=== PATIENT | female | born 1945 | race Caucasian/White ===

== ENCOUNTER 2019-10-31 11:38 | Observation (INO) | payer MEDICARE ==
[2019-10-28 12:21] LABS: ALBUMIN 3.9 G/DL (3.4-5.0); ANION GAP 6 (8-16); BLOOD UREA NITROGEN 15 MG/DL (7-18); BUN/CREATININE RATIO 18.3 (6.6-38.0); CALCIUM 9.3 MG/DL (8.5-10.1); CHLORIDE 98 MMOL/L (99-107); CREATININE 0.82 MG/DL (0.40-0.90); GLUCOSE 200 MG/DL (70-104); POTASSIUM 3.9 MMOL/L (3.5-5.1); SODIUM 136 MMOL/L (135-145); TOTAL CARBON DIOXIDE 31.6 MMOL/L (24-32); eGFR 68 ML/MIN
[2019-10-28 12:25] LABS: PARTIAL THROMBOPLASTIN TIME 25 SECONDS (22-32)
[2019-10-28 12:28] LABS: BASOPHILS % (AUTO) 0.7 % (0-1); EOSINOPHILS # (AUTO) 0.3 X10'3 (0-0.9); EOSINOPHILS % (AUTO) 5.1 % (0-6); HEMATOCRIT 40.2 % (35.0-45.0); HEMOGLOBIN 13.9 g/dl (12.0-16.0); LYMPHOCYTES # (AUTO) 1.6 X10'3 (1.1-4.8); LYMPHOCYTES % (AUTO) 24.6 % (21-51); MEAN CORPUSCULAR HEMOGLOBIN 32.8 PG (27.0-31.0); MEAN CORPUSCULAR HGB CONC 34.6 g/dL (33.0-36.5); MEAN CORPUSCULAR VOLUME 94.9 FL (78-98); MEAN PLATELET VOLUME 10.5 FL (7.4-10.4); MONOCYTES # (AUTO) 0.7 X10'3 (0-0.9); MONOCYTES % (AUTO) 10.8 % (2-12); NEUTROPHILS # (AUTO) 3.9 X10'3 (1.8-7.7); NEUTROPHILS % (AUTO) 58.8 % (42-75); PLATELET COUNT 233 X10'3 (140-440); RED BLOOD COUNT 4.23 X10'6 (4.20-5.60); RED CELL DISTRIBUTION WIDTH 13.1 % (11.5-14.5); WHITE BLOOD COUNT 6.6 X10'3 (4.5-11.0)
[~2019-10-31] VITALS: Ht 160 cm; Wt 71.3 kg
[2019-10-31] VITALS (13 sets, daily range): BP systolic 121–187; BP diastolic 57–93
[2019-10-31] MEDS ORDERED: LORazepam 0.5 MG tablet PO PRN (11:55)
[2019-10-31] MEDS: normal saline 1,000 ML IV SCH ×2 (11:55→21:55)
[2019-10-31] MEDS ORDERED: diphenhydrAMINE 25mg capsule PO PRN (11:55)
[2019-10-31] MEDS ORDERED: ROSU20TA2 PO (13:02)
[2019-10-31] MEDS ORDERED: MAGN400C PO (13:02)
[2019-10-31] MEDS ORDERED: Super B Complex PO (13:02)
[2019-10-31] MEDS ORDERED: LEVO125T PO (13:02)
[2019-10-31] MEDS ORDERED: NITR-79 PO (13:02)
[2019-10-31] MEDS ORDERED: PRIM250T8 PO (13:02)
[2019-10-31] MEDS ORDERED: CHOL400T14 PO (13:02)
[2019-10-31] MEDS ORDERED: UBID100C16 PO (13:02)
[2019-10-31] MEDS ORDERED: ASPI-1265 PO (13:02)
[2019-10-31] MEDS ORDERED: TURM500C4 PO (13:02)
[2019-10-31] MEDS ORDERED: MULT-933 PO (13:02)
[2019-10-31] MEDS ORDERED: LISI1TAB28 PO (13:02)
[2019-10-31] MEDS ORDERED: METF500T PO (13:02)
[2019-10-31] MEDS ORDERED: ALBU8.5H8 INH (13:02)
[2019-10-31] MEDS ORDERED: AMLO2.5T2 PO (13:02)
[2019-10-31] MEDS ORDERED: BLACK CURRANT SEED PO (13:02)
[2019-10-31] MEDS ORDERED: LIDOcaine/PRILOcaine 5gm cream TP ONE (13:15)
[2019-10-31] MEDS ORDERED: fentaNYL/PF 50MCG/1 ML 2ML syringe ONE (13:15)
[2019-10-31] MEDS ORDERED: midazolam 2 mg/2 ml injection ONE (13:15)
[2019-10-31] MEDS ORDERED: verapamil 2.5 mg/ml inj IV ONE (13:15)
[2019-10-31] MEDS ORDERED: iohexol 350MG/ML 100ml bottle IV ONE ×3 (13:16→16:32)
[2019-10-31] MEDS ORDERED: iohexol 350 MG/ML 50ML vial IV ONE (13:16)
[2019-10-31] MEDS ORDERED: heparin 1,000 UNITS/NS 500ml 500 ML ONE ×2 (13:16→16:14)
[2019-10-31] MEDS ORDERED: LIDOcaine 1% (10mg/ml)w/preservative injection 20ml MDV ONE (13:16)
[2019-10-31] MEDS ORDERED: nitroGLYCERIN-Tridil 50MG/D5W 250 ML IV ONE (13:16)
[2019-10-31] MEDS ORDERED: heparin 1,000unit/ml 10ml vial 10 ML ONE ×2 (13:16→16:57)
[2019-10-31] MEDS ORDERED: heparin 25,000 UNIT/250ml bag 250 ML IV ONE (15:34)
[2019-10-31] MEDS ORDERED: tirofiban 12.5mg in NS 250mL 250 ML IV ONE (16:46)
[2019-10-31] MEDS ORDERED: clopidogrel 300mg tablet ONE (16:57)
[2019-10-31] MEDS ORDERED: acetaminophen 325mg tablet PO PRN (17:45)
[2019-10-31] MEDS ORDERED: cyclobenzaprine 10mg tablet PO PRN (17:45)
[2019-10-31] MEDS: normal saline 1000ml 1,000 ML IV SCH (17:45)
[2019-10-31] MEDS ORDERED: magnesium hydroxide 30ml (MOM) UD suspension PO PRN (17:45)
[2019-10-31] MEDS ORDERED: proCHLORperazine 10 MG/2 ml inj IV PRN (17:45)
[2019-10-31] MEDS ORDERED: aspirin 325mg tablet PO ONE (17:45)
[2019-10-31] MEDS ORDERED: OXAZEpam 15mg capsule PO PRN (17:45)
[2019-10-31] MEDS ORDERED: HYDROcodone/acetaminophen 10/325mg tab PO PRN ×2 (17:45)
[2019-10-31] MEDS ORDERED: aspirin 81mg tab.chew PO ONE (17:55)
[2019-10-31] MEDS ORDERED: albuterol 2.5 MG/3 ML nebule NEB PRN (18:05)
--- NOTE | 2019-10-31 18:45 | NUR ---
Patient report given at bedside rm#[id number], questions answered & plan of care reviewed with FLEX [place], pt's VSS, pt's Shahriar YORK CDI, pt. is in stable condition and in no apparent distress at this time.
--- NOTE | 2019-10-31 18:46 | NUR ---
pt arrived to the unit around 1830. she is alert and oriented. BP is 180's systolic, otherwise VS are stable. groin site looks clear, without bleeding or hematoma. report received from Short Stay RN.
[2019-10-31] MEDS ORDERED: nitroGLYCERIN-Tridil 50MG/D5W 250 ML IV PRN (19:20)
--- NOTE | 2019-10-31 19:20 | NUR ---
on assessment, pt is complaining of chest pressure. she reports it to be a 8/10 at this time. she reports that her chest pain started in the [facility], and continued while she was in short stay, and continues still. she reports it has been able the same, and has not increased or decreased. EKG was obtained at this time. i called Dr Portillo and received orders to administer her morphine order of 2mg, and to start a nitro drip per protocol to control her BP. orders entered. continue to monitor.
[2019-10-31] MEDS: morphine 4 MG/ML inj SYRINge IV PRN (19:28)
[2019-10-31] MEDS: clopidogrel 75mg tablet PO SCH (20:00)
[2019-10-31] MEDS: docusate sod 100mg capsule PO SCH (20:20)
[2019-10-31] MEDS ORDERED: CHOL100046 PO (20:40)
[2019-10-31] MEDS ORDERED: heparin 25,000 UNIT/250ml bag 250 ML IV SCH (21:01)
--- NOTE | 2019-10-31 21:04 | NUR ---
Dr Portillo came to bedside at this time. reviewed EKG and talked with patient. no new orders at this time. BP in 130's on Nitro at 5mg/hr. continue to monitor.
[2019-10-31] MEDS ORDERED: heparin 10,000 units/1 ML INJ IV PRN (21:05)
[2019-10-31] MEDS ORDERED: heparin 10,000 units/1 ML INJ IV ONE (21:05)
[2019-10-31] MEDS: tirofiban 5mg in NS 100mL 100 ML IV SCH (21:35)
--- NOTE | 2019-10-31 23:03 | NUR ---
heparin off at this time
[2019-11-01] VITALS (15 sets, daily range): BP systolic 115–142; BP diastolic 53–67
[2019-11-01] MEDS: tirofiban 5mg in NS 100mL 100 ML IV SCH (01:29)
--- NOTE | 2019-11-01 02:30 | NUR ---
ACT was 131. venous sheath pulled at 0135. arterial sheath pulled at 0152. femstop placed at 0215. tolerated well. dressing CDI. no hematoma.
[2019-11-01] MEDS: normal saline 1000ml 1,000 ML IV SCH ×2 (03:45→13:54)
[2019-11-01 05:10] LABS: BASOPHILS % (AUTO) 0.4 % (0-1); EOSINOPHILS % (AUTO) 0.5 % (0-6); HEMATOCRIT 34.8 % (35.0-45.0); HEMOGLOBIN 12.2 g/dl (12.0-16.0); LYMPHOCYTES # (AUTO) 1.6 X10'3 (1.1-4.8); LYMPHOCYTES % (AUTO) 17.1 % (21-51); MEAN CORPUSCULAR HEMOGLOBIN 33.1 PG (27.0-31.0); MEAN CORPUSCULAR HGB CONC 35.2 g/dL (33.0-36.5); MEAN CORPUSCULAR VOLUME 93.9 FL (78-98); MEAN PLATELET VOLUME 9.9 FL (7.4-10.4); MONOCYTES # (AUTO) 0.8 X10'3 (0-0.9); MONOCYTES % (AUTO) 8.5 % (2-12); NEUTROPHILS # (AUTO) 6.7 X10'3 (1.8-7.7); NEUTROPHILS % (AUTO) 73.5 % (42-75); PLATELET COUNT 217 X10'3 (140-440); RED CELL DISTRIBUTION WIDTH 13.4 % (11.5-14.5); WHITE BLOOD COUNT 9.1 X10'3 (4.5-11.0)
[2019-11-01 05:21] LABS: ALBUMIN 3.3 G/DL (3.4-5.0); ANION GAP 9 (8-16); BLOOD UREA NITROGEN 14 MG/DL (7-18); BUN/CREATININE RATIO 17.5 (6.6-38.0); CALCIUM 8.1 MG/DL (8.5-10.1); CHLORIDE 104 MMOL/L (99-107); GLUCOSE 232 MG/DL (70-104); POTASSIUM 3.3 MMOL/L (3.5-5.1); SODIUM 139 MMOL/L (135-145); TOTAL CARBON DIOXIDE 25.9 MMOL/L (24-32); eGFR 70 ML/MIN
[2019-11-01] MEDS: morphine 4 MG/ML inj SYRINge IV PRN (06:04)
--- NOTE | 2019-11-01 06:30 | NUR ---
Problems reprioritized. Patient report given, questions answered & plan of care reviewed with Shira RN.
--- NOTE | 2019-11-01 06:31 | NUR ---
[facility]. I have received report from FLEX Murcia and had the opportunity to ask questions and assume patient care. Pt is awake and alert in bed. Addendum: 11/01/19 at 0636 by Shira Flanagan RN Aggrastat infusing at 0.15mcg/kg/min, Nitro infusing at 7.5mcg/kg/min. Per Adeline Hernandez, titrate Nitro down with morning BP meds as appropriate per BP.
[2019-11-01] MEDS ORDERED: METF500T PO (06:37)
[2019-11-01] MEDS ORDERED: METO25TA6 PO (06:37)
[2019-11-01] MEDS ORDERED: NITR0.4T51 SL (06:37)
[2019-11-01] MEDS ORDERED: CLOP75TA35 PO (06:37)
[2019-11-01] MEDS ORDERED: ASPI-1 PO (06:37)
[2019-11-01] MEDS ORDERED: ATOR80TA PO (06:37)
[2019-11-01] MEDS ORDERED: glucagon, human recombinant 1mg kit SUBCUT PRN (07:00)
[2019-11-01] MEDS ORDERED: dextrose 50%-water 50ml dispensing syringe IV PRN ×2 (07:00)
[2019-11-01] MEDS ORDERED: insulin Lispro (HumaLOG) vial - multi-dose SQ SCH (07:00)
[2019-11-01] MEDS ORDERED: dextrose ORAL solution 15 GM/59 ML bottle PO PRN ×2 (07:00)
[2019-11-01] MEDS ORDERED: MESSAGE TO PHARMACY PO ONE (07:00)
[2019-11-01] MEDS: normal saline 1,000 ML IV SCH (07:55)
[2019-11-01] MEDS ORDERED: vitamin D (cholecalciferol) 1,000 unit tablet PO SCH (08:00)
[2019-11-01] MEDS ORDERED: atorvastatin 20mg tablet PO SCH (08:00)
[2019-11-01] MEDS ORDERED: multivitamins, therapeutics tablet PO SCH (08:00)
[2019-11-01] MEDS ORDERED: SUPER B COMPLEX PO SCH ×2 (08:00→10:00)
[2019-11-01] MEDS ORDERED: lisinopril 20mg tablet PO SCH (08:00)
[2019-11-01] MEDS ORDERED: levoTHYROXINE 125mcg tablet PO SCH (08:00)
[2019-11-01] MEDS ORDERED: metoprolol tartrate 25mg tablet PO SCH (08:00)
[2019-11-01] MEDS ORDERED: nitrofurantoin macrocrystal 100mg capsule PO SCH (08:00)
[2019-11-01] MEDS ORDERED: aspirin 81mg tab.chew PO SCH (08:00)
[2019-11-01] MEDS ORDERED: amLODIPine 2.5mg tablet PO SCH (08:00)
[2019-11-01] MEDS ORDERED: primidone 250mg tablet PO SCH (08:00)
[2019-11-01] MEDS ORDERED: HYDROchlorothiazide 12.5mg capsule PO SCH (08:00)
[2019-11-01] MEDS ORDERED: magnesium oxide 400mg tablet PO SCH (08:00)
[2019-11-01] MEDS: docusate sod 100mg capsule PO SCH (08:28)
[2019-11-01] MEDS ORDERED: aspirin 325mg tablet PO SCH (08:30)
[2019-11-01] MEDS ORDERED: primidone 50mg tablet PO SCH ×2 (08:55→09:00)
--- NOTE | 2019-11-01 09:30 | NUR ---
femstop removed. no bleeding. no hematoma. CDI. mild bruising. peripheral pulses in tact.
[2019-11-01] MEDS: clopidogrel 75mg tablet PO SCH (09:34)
--- NOTE | 2019-11-01 09:37 | NUR ---
Nitro titrated to 3.[address] Portillo. Nitro to be titrated and stopped. Pt to ambulate.
--- NOTE | 2019-11-01 09:37 | NUR ---
Aggrastat stopped per Dr Portillo
[2019-11-01] MEDS ORDERED: vitamin B comp w/Vit. C tab 1 TAB TABLET PO SCH (10:00)
--- NOTE | 2019-11-01 10:25 | NUR ---
Nitro stopped. will continue to monitor BP.
[2019-11-01] MEDS ORDERED: potassium Cl 20 mEq SR tablet PO PRN (10:40)
[2019-11-01] MEDS ORDERED: magnesium 2GM in 50ml NS 50 ML IV PRN (10:40)
[2019-11-01] MEDS ORDERED: potassium Cl 20mEq/100mL bag 100 ML IV PRN (10:40)
[2019-11-01] MEDS ORDERED: magnesium 4gm in 100ml NS 100 ML IV PRN (10:40)
--- NOTE | 2019-11-01 12:35 | NUR ---
pt ambulated approximately 300 ft. no episodes of dizziness or syncope. VS after ambulation HR 80, RR 18, O2 sat 98%, BP 130/62.
--- NOTE | 2019-11-01 13:47 | NUR ---
DM consult, A1c is 7.8, patient given written DM education handout with verbal review and referral to outpatient DM education class on thursday. Addendum: 11/01/19 at [address] Amended: Links added.
--- NOTE | 2019-11-01 14:29 | NUR ---
pt discharged. IV d/c'd, all belongings sent with pt, Rx called to [facility] in [place], pt will make follow up appt with Dr Portillo for two weeks, appt with Dr Brenner made for 11/29/19 at 1200. Wheeled down by hospital staff, left in private vehicle.
[2019-11-01] MEDS ORDERED: insulin glargine (Lantus) pen - multi-dose SQ SCH (21:00)
== END 2019-11-01 14:15 | disposition home or self-care (01) ==
LOC: SSTAY O 11:38 → CICU 2S 11-01 02:46
PROVIDERS: ADMIT Internal Medicine Cardiovascular Disease; ATTEND Internal Medicine Cardiovascular Disease
DX: R94.30 Abnormal result of cardiovascular function study, unspecified (principal); I10 Essential (primary) hypertension; I25.10 Atherosclerotic heart disease of native coronary artery without angina pectoris; E78.5 Hyperlipidemia, unspecified; E11.9 Type 2 diabetes mellitus without complications; Z95.5 Presence of coronary angioplasty implant and graft; Z79.890 Hormone replacement therapy; Z79.84 Long term (current) use of oral hypoglycemic drugs; Z79.02 Long term (current) use of antithrombotics/antiplatelets; Z79.899 Other long term (current) drug therapy
CPT/HCPCS: 36415; 80048; 82948; 83036; 85025; 85347; 85610; 85730; 93005; 93458; 94760; 96365; 96366; 96368; 96372; 96375; 96376; C1725; C1769; C1874; C1894; C9600; G0378; J1644; J1815; J2001; J2250; J2270; J3010; J3246; J7030; Q0163; Q9967; 99152; 99153; A5120; A6258; J3490

== ENCOUNTER 2021-02-06 06:52 | Day surgery (SDC) | payer MEDICARE ==
[2021-02-05 08:52] LABS: BASOPHILS # (AUTO) 0.1 X10'3 (0-0.2); BASOPHILS % (AUTO) 0.8 % (0-1); EOSINOPHILS # (AUTO) 0.4 X10'3 (0-0.9); EOSINOPHILS % (AUTO) 5.8 % (0-6); HEMATOCRIT 39.3 % (35.0-45.0); HEMOGLOBIN 13.6 g/dl (12.0-16.0); LYMPHOCYTES # (AUTO) 1.4 X10'3 (1.1-4.8); LYMPHOCYTES % (AUTO) 20.7 % (21-51); MEAN CORPUSCULAR HEMOGLOBIN 32.7 PG (27.0-31.0); MEAN CORPUSCULAR HGB CONC 34.5 g/dL (33.0-36.5); MEAN CORPUSCULAR VOLUME 94.6 FL (78-98); MEAN PLATELET VOLUME 9.9 FL (7.4-10.4); MONOCYTES # (AUTO) 0.6 X10'3 (0-0.9); MONOCYTES % (AUTO) 9.7 % (2-12); NEUTROPHILS # (AUTO) 4.2 X10'3 (1.8-7.7); PLATELET COUNT 220 X10'3 (140-440); RED BLOOD COUNT 4.15 X10'6 (4.20-5.60); RED CELL DISTRIBUTION WIDTH 13.5 % (11.5-14.5); WHITE BLOOD COUNT 6.6 X10'3 (4.5-11.0)
[2021-02-05 09:05] LABS: PARTIAL THROMBOPLASTIN TIME 25 SECONDS (22-32)
[2021-02-05 09:29] LABS: ALBUMIN 3.6 G/DL (3.4-5.0); ANION GAP 8 (8-16); BLOOD UREA NITROGEN 20 MG/DL (7-18); BUN/CREATININE RATIO 23.5 (6.6-38.0); CALCIUM 8.9 MG/DL (8.5-10.1); CHLORIDE 103 MMOL/L (99-107); CREATININE 0.85 MG/DL (0.40-0.90); GLUCOSE 237 MG/DL (70-104); POTASSIUM 3.5 MMOL/L (3.5-5.1); SODIUM 140 MMOL/L (135-145); TOTAL CARBON DIOXIDE 28.8 MMOL/L (24-32); eGFR 65 ML/MIN
[~2021-02-06] VITALS: Ht 162.6 cm; Wt 67.4 kg
[2021-02-06] VITALS (12 sets, daily range): BP systolic 96–156; BP diastolic 52–76
[~2021-02-06 06:52] MED LIST: ALBU8.5H8 INH; ASPI-1 PO; ATOR80TA PO; CHOL100046 PO; CLOP75TA34 PO; LEVO125T PO; LISI1TAB51 PO; MAGN400C PO; METF500T PO; METO25TA6 PO; MULT-933 PO; NITR-79 PO; NITR0.4T51 SL; PRIM250T8 PO; Super B Complex PO
[2021-02-06] MEDS ORDERED: midazolam 1 mg/ML 2ml injection ONE (07:14)
[2021-02-06] MEDS ORDERED: verapamil 2.5 mg/ml inj IV ONE (07:14)
[2021-02-06] MEDS ORDERED: heparin 1,000unit/ml 10ml vial 10 ML ONE (07:15)
[2021-02-06] MEDS ORDERED: LORazepam 0.5 MG tablet PO PRN (07:15)
[2021-02-06] MEDS ORDERED: nitroGLYCERIN-Tridil 50MG/D5W 250 ML IV ONE (07:15)
[2021-02-06] MEDS ORDERED: LIDOcaine 1% (10mg/ml)w/preservative injection 20ml MDV ONE (07:15)
[2021-02-06] MEDS ORDERED: fentaNYL/PF 50MCG/1 ML 2ML syringe ONE (07:15)
[2021-02-06] MEDS ORDERED: diphenhydrAMINE 25mg capsule PO PRN (07:15)
[2021-02-06] MEDS ORDERED: iohexol 350MG/ML 100ml bottle IV ONE ×2 (07:15→08:47)
[2021-02-06] MEDS ORDERED: GLIP5TAB13 PO (07:25)
[2021-02-06] MEDS ORDERED: AMLO10TA13 PO (07:25)
[2021-02-06] MEDS ORDERED: HYDR12.55 PO (07:25)
[2021-02-06] MEDS ORDERED: ATOR40TA72 PO (07:25)
[2021-02-06] MEDS ORDERED: METF-950 PO (07:25)
[2021-02-06] MEDS ORDERED: LISI40TA13 PO (07:25)
[2021-02-06] MEDS ORDERED: NITR0.4T SL (07:28)
[2021-02-06] MEDS ORDERED: METO25TA6 PO (07:28)
[2021-02-06] MEDS ORDERED: ASPI-611 PO (07:28)
[2021-02-06] MEDS ORDERED: CLOP75TA15 PO (07:28)
[2021-02-06] MEDS ORDERED: BENZONATE (07:33)
[2021-02-06] MEDS: normal saline 1,000 ML IV SCH ×2 (07:38→09:35)
[2021-02-06] MEDS ORDERED: iohexol 350 MG/ML 50ML vial IV ONE (07:52)
[2021-02-06] MEDS ORDERED: HYDROcodone/acetaminophen 5mg/325mg tablet PO PRN (09:30)
[2021-02-06] MEDS ORDERED: HYDROcodone/acetaminophen 10/325mg tab PO PRN (09:30)
--- NOTE | 2021-02-06 13:30 | NUR ---
Pt ate 100% of lunch tray, 350ml oral fluid intake
--- NOTE | 2021-02-06 14:04 | NUR ---
Pt voided. Dark yellow and clear. Pt denies pain at this time.
--- NOTE | 2021-02-06 14:56 | NUR ---
Femstop in place, pressure released. Pt laying supine in bed, denies pain, denies sob. Will continue to monitor
--- NOTE | 2021-02-06 15:03 | NUR ---
Femstop removed, sterile dressing applied. No s/s of bleeding. Pt placed at 45 degrees. Will continue to monitor.
== END 2021-02-06 15:50 | disposition home or self-care (01) ==
LOC: SSTAY O 06:52
PROVIDERS: ATTEND Internal Medicine Cardiovascular Disease
DX: R94.39 Abnormal result of other cardiovascular function study (principal); I25.10 Atherosclerotic heart disease of native coronary artery without angina pectoris; I10 Essential (primary) hypertension; E78.5 Hyperlipidemia, unspecified; Z95.5 Presence of coronary angioplasty implant and graft; E11.9 Type 2 diabetes mellitus without complications; E66.3 Overweight; Z68.25 Body mass index [BMI] 25.0-25.9, adult; Z98.890 Other specified postprocedural states; Z79.899 Other long term (current) drug therapy; Z79.84 Long term (current) use of oral hypoglycemic drugs; Z79.01 Long term (current) use of anticoagulants; Z79.82 Long term (current) use of aspirin; Z72.89 Other problems related to lifestyle
CPT/HCPCS: 36415; 76937; 80048; 82948; 85025; 85610; 85730; 93005; 93458; 99152; 99153; C1769; C1894; J1644; J2001; J2250; J3010; J7030; Q0163; Q9967; A4620; A6258; J3490

== ENCOUNTER 2023-10-14 06:58 | Day surgery (SDC) | payer MEDICARE ==
[2023-10-13 12:01] LABS: BASOPHILS # (AUTO) 0.1 X10'3 (0-0.2); BASOPHILS % (AUTO) 0.6 % (0-1); EOSINOPHILS # (AUTO) 0.9 X10'3 (0-0.9); HEMATOCRIT 41.1 % (35.0-45.0); HEMOGLOBIN 13.8 g/dl (12.0-16.0); LYMPHOCYTES # (AUTO) 2.4 X10'3 (1.1-4.8); LYMPHOCYTES % (AUTO) 25.8 % (21-51); MEAN CORPUSCULAR HEMOGLOBIN 32.5 PG (27.0-31.0); MEAN CORPUSCULAR HGB CONC 33.6 g/dL (33.0-36.5); MEAN CORPUSCULAR VOLUME 96.6 FL (78-98); MEAN PLATELET VOLUME 9.9 FL (7.4-10.4); MONOCYTES # (AUTO) 0.8 X10'3 (0-0.9); MONOCYTES % (AUTO) 8.6 % (2-12); NEUTROPHILS # (AUTO) 5.3 X10'3 (1.8-7.7); PLATELET COUNT 220 X10'3 (140-440); RED BLOOD COUNT 4.26 X10'6 (4.20-5.60); RED CELL DISTRIBUTION WIDTH 13.8 % (11.5-14.5); WHITE BLOOD COUNT 9.5 X10'3 (4.5-11.0)
[2023-10-13 12:05] LABS: ALBUMIN 3.2 G/DL (3.4-5.0); ANION GAP 6 (8-16); BLOOD UREA NITROGEN 15 MG/DL (7-18); BUN/CREATININE RATIO 13.6 (10.0-20.0); CHLORIDE 103 MMOL/L (99-107); GLUCOSE 286 MG/DL (70-104); POTASSIUM 3.7 MMOL/L (3.5-5.1); SODIUM 137 MMOL/L (135-145); TOTAL CARBON DIOXIDE 27.9 MMOL/L (24-32); eGFR 48 ML/MIN
[2023-10-13 12:09] LABS: APTT 25 SECONDS (22-32); PROTHROMBIN TIME 10.6 SECONDS (9.0-12.0)
[~2023-10-14] VITALS: Ht 162.6 cm; Wt 63.7 kg
[2023-10-14] VITALS (11 sets, daily range): BP systolic 129–170; BP diastolic 60–104; PULSE 73–89; RESP 12–14; TEMP 98.1; O2SAT 94–98
[~2023-10-14 06:58] MED LIST changes: +ALBU8.5H17 INH; -ALBU8.5H8 INH; +AMLO10TA13 PO; -ASPI-1 PO; +ASPI-611 PO; +ATOR40TA72 PO; -ATOR80TA PO; +BENZONATE; +CLOP75TA15 PO; -CLOP75TA34 PO; +GLIP5TAB13 PO; +HYDR12.55 PO; -LISI1TAB51 PO; +LISI40TA13 PO; +LOP25T PO; -MAGN400C PO; +METF-1203 PO; -METF500T PO; -METO25TA6 PO; -NITR-79 PO; +NITR0.4T SL; -NITR0.4T51 SL; -Super B Complex PO
[2023-10-14] MEDS ORDERED: normal saline 1,000 ML IV SCH (07:30)
[2023-10-14] MEDS ORDERED: diphenhydrAMINE 25mg capsule PO PRN (07:30)
[2023-10-14] MEDS ORDERED: LORazepam 0.5 MG tablet PO PRN (07:30)
[2023-10-14] MEDS ORDERED: PRIM50TA5 PO (07:48)
[2023-10-14] MEDS ORDERED: DAPA10TA PO (07:48)
[2023-10-14] MEDS ORDERED: ATOR-2 PO (07:48)
[2023-10-14] MEDS ORDERED: SEMA0.258 SQ (07:48)
[2023-10-14] MEDS ORDERED: OMEG1CAP46 PO (07:48)
[2023-10-14] MEDS ORDERED: fentaNYL/PF 50MCG/1 ML 2ML syringe ONE (08:25)
[2023-10-14] MEDS ORDERED: heparin 1,000unit/ml 10ml vial 10 ML ONE (08:25)
[2023-10-14] MEDS ORDERED: iohexol 350MG/ML 100ml bottle IV ONE (08:25)
[2023-10-14] MEDS ORDERED: LIDOcaine 1% (10mg/ml) 2ml vial ONE (08:25)
[2023-10-14] MEDS ORDERED: midazolam 1 mg/ML 2ml injection ONE (08:25)
[2023-10-14] MEDS ORDERED: verapamil 2.5 mg/ml inj IV ONE (08:25)
[2023-10-14] MEDS ORDERED: nitroGLYCERIN 500mcg/5mL D5W 5 ML IV ONE (08:26)
[2023-10-14] MEDS ORDERED: LIDOcaine 1% (10mg/ml)w/preservative inj. 20ml MDV ONE (09:28)
[2023-10-14] MEDS ORDERED: iohexol 350 MG/ML 50ML vial IV ONE (09:38)
== END 2023-10-14 15:21 | disposition home or self-care (01) ==
LOC: SSTAY O 06:58
PROVIDERS: ATTEND Internal Medicine Cardiovascular Disease
DX: I25.10 Atherosclerotic heart disease of native coronary artery without angina pectoris (principal); I10 Essential (primary) hypertension; E11.9 Type 2 diabetes mellitus without complications; E78.5 Hyperlipidemia, unspecified; E66.3 Overweight; Z79.84 Long term (current) use of oral hypoglycemic drugs; Z79.890 Hormone replacement therapy; Z79.82 Long term (current) use of aspirin; Z79.899 Other long term (current) drug therapy; Z90.89 Acquired absence of other organs; Z98.890 Other specified postprocedural states; Z68.24 Body mass index [BMI] 24.0-24.9, adult
CPT/HCPCS: 36415; 76937; 80048; 82948; 85025; 85610; 85730; 93005; 93458; 99152; 99153; A6258; J1644; J2250; J3010; J3490; J7030; Q0163; Q9967; A6402; C1725; C1760; C1894